=== PATIENT | male | born 1970 | race Asian ===

== ENCOUNTER 2016-08-23 03:08 | Emergency (ER) | payer OTHER ==
[2016-08-23 04:36] LABS: BASOPHIL % 0.4 % (0-2); PLATELET COUNT 263 x10^3mcL (130-400); RED CELL DISTRIBUTION WIDTH 12.7 % (11.5-14.5)
[2016-08-23 04:42] LABS: CALCIUM 9.2 mg/dL (8.5-10.1); CARBON DIOXIDE 24.4 mmol/L (21-32); CHLORIDE SERUM 106 mmol/L (98-107); CREATININE SERUM 1.2 mg/dL (0.7-1.3); GFR1 > 60 mL/min; GLUCOSE SERUM 143 mg/dL (74-106); POTASSIUM SERUM 4.4 mmol/L (3.5-5.1); SODIUM SERUM 142 mmol/L (136-145)
[2016-08-23 04:55] LABS: ALKALINE PHOSPHATASE 69 U/L (46-116); ALT/SGPT 46 U/L (16-63); AMYLASE 80 U/L (25-115); AST/SGOT 28 U/L (15-37); BILIRUBIN TOTAL 0.4 mg/dL (0.20-1.00); LIPASE 160 IU/L (73-393); TOTAL PROTEIN, SERUM 7.3 g/dL (6.4-8.2)
[2016-08-23 04:56] LABS: ALBUMIN 3.3 g/dL (3.4-5.0)
[2016-08-23 06:25] VITALS: BP 127/86
== END 2016-08-23 06:27 | disposition home or self-care (01) ==
LOC: ED 03:08
PROVIDERS: Emergency Medicine
DX: N20.0 Calculus of kidney (principal); Z88.0 Allergy status to penicillin
CPT/HCPCS: 83880; J2270; J2405; J7030

== ENCOUNTER 2017-03-25 17:24 | Emergency (ER) | payer OTHER ==
[~2017-03-25] VITALS: Ht 170.2 cm; Wt 115.7 kg
[2017-03-25 17:48] VITALS: Ht 170.2 cm; Wt 115.7 kg
[2017-03-25 18:41] LABS: CALCIUM 8.6 mg/dL (8.5-10.1); CARBON DIOXIDE 25.2 mmol/L (21-32); CREATININE SERUM 1.4 mg/dL (0.7-1.3); POTASSIUM SERUM 3.9 mmol/L (3.5-5.1)
[2017-03-25 18:46] LABS: BILIRUBIN TOTAL 0.61 mg/dL (0.20-1.00); TOTAL PROTEIN, SERUM 7.6 g/dL (6.4-8.2); URIC ACID 4.4 mg/dL (3.5-7.2)
[2017-03-25 18:47] LABS: ALBUMIN 3.2 g/dL (3.4-5.0)
[2017-03-25 19:01] LABS: BASOPHIL % 0.3 % (0-2); PLATELET COUNT 248 x10^3mcL (130-400); RED CELL DISTRIBUTION WIDTH 13.5 % (11.5-14.5)
[2017-03-25 19:09] LABS: UA SPECIFIC GRAVITY 1.015 (1.005-1.035); microscopic required? YES; urine erythrocyte 3+ (NEGATIVE)
[2017-03-25 20:58] VITALS: BP 145/90
== END 2017-03-25 20:58 | disposition home or self-care (01) ==
LOC: ED 17:24
PROVIDERS: Emergency Medicine
DX: N23 Unspecified renal colic (principal); N39.0 Urinary tract infection, site not specified; Z87.442 Personal history of urinary calculi; Z88.0 Allergy status to penicillin
CPT/HCPCS: J2270; J2405; Q0092

== ENCOUNTER 2017-04-09 03:16 | Emergency (ER) | payer OTHER ==
[~2017-04-09] VITALS: Ht 170.2 cm; Wt 115.9 kg
[2017-04-09 03:24] VITALS: Ht 170.2 cm; Wt 115.9 kg
[2017-04-09 06:37] VITALS: BP 122/70
== END 2017-04-09 06:37 | disposition home or self-care (01) ==
LOC: ED 03:16
DX: R10.31 Right lower quadrant pain (principal); N50.82 Scrotal pain; Z88.0 Allergy status to penicillin; Z88.2 Allergy status to sulfonamides
CPT/HCPCS: Q0092

== ENCOUNTER 2017-11-12 16:35 | Emergency (ER) | payer OTHER ==
[~2017-11-12] VITALS: Ht 170.2 cm; Wt 118.8 kg
[2017-11-12 17:09] VITALS: Ht 170.2 cm; Wt 118.8 kg
[2017-11-12 18:23] LABS: BASOPHIL % 0.3 % (0-2); PLATELET COUNT 252 x10^3mcL (130-400)
[2017-11-12 18:23] LABS: UA SPECIFIC GRAVITY >=1.030 (1.005-1.035); microscopic required? YES; urine erythrocyte 3+ (NEGATIVE)
[2017-11-12 18:36] LABS: CALCIUM 8.8 mg/dL (8.5-10.1); CARBON DIOXIDE 23.7 mmol/L (21-32); CHLORIDE SERUM 106 mmol/L (98-107); CREATININE SERUM 1.1 mg/dL (0.7-1.3); GFR1 > 60 mL/min; GLUCOSE SERUM 195 mg/dL (74-106); POTASSIUM SERUM 4.5 mmol/L (3.5-5.1); SODIUM SERUM 140 mmol/L (136-145)
[2017-11-12 18:40] LABS: ALKALINE PHOSPHATASE 69 U/L (46-116); ALT/SGPT 71 U/L (16-63); AMYLASE 64 U/L (25-115); AST/SGOT 38 U/L (15-37); BILIRUBIN TOTAL 0.43 mg/dL (0.20-1.00); LIPASE 136 IU/L (73-393); TOTAL PROTEIN, SERUM 7.9 g/dL (6.4-8.2)
[2017-11-12 18:41] LABS: ALBUMIN 3.2 g/dL (3.4-5.0)
[2017-11-12 20:27] VITALS: BP 127/73
== END 2017-11-12 20:27 | disposition home or self-care (01) ==
LOC: ED 16:35
PROVIDERS: Emergency Medicine
DX: N20.0 Calculus of kidney (principal); Z88.0 Allergy status to penicillin; Z88.2 Allergy status to sulfonamides; Z98.890 Other specified postprocedural states
CPT/HCPCS: J1885; J2405; J7030